=== PATIENT | female | born 1970 | race Caucasian/White ===

== ENCOUNTER 2019-05-24 11:50 | Emergency (ER) | payer BC, SELFPAY ==
[2019-05-24 11:52] VITALS: BP 122/72; PULSE 81; RESP 18; TEMP 37.1; O2SAT 99; BMI 23.5
--- NOTE | 2019-05-24 12:25 | US_ITS ---
STUDY: ABDOMINAL ULTRASOUND - RIGHT UPPER QUADRANT REASON FOR VISIT: Female, 49 years old several month history of right upper quadrant pain. TECHNIQUE: Ultrasound evaluation of the right upper quadrant was performed with real-time and static araujo-scale imaging. TECHNICAL QUALITY: Limited. Examination limited by bowel gas. COMPARISON: None. FINDINGS: Liver: The liver measures 12.7 cm. There is normal echogenicity of the liver. The bile ducts are within normal limits. There is hepatic color flow. The direction of portal flow is hepatopetal. There is no demonstrated mass lesion. Gallbladder: There is a contracted gallbladder. The gallbladder wall measures 3.4 mm. There is a positive sonographic Kincaid's sign. There is no pericholecystic fluid. Contracted stone filled gallbladder. Common Bile Duct (C.B.D.): The common bile duct measures 2.2 mm. Pancreas: Normal size of the head, body and tail of the pancreas. There is normal echogenicity of the pancreas. There is no demonstrated pancreatic mass or cyst. Right Kidney: Normal size of the right kidney. The right kidney measures 11.1 cm x 5.2cm x 5.4 cm. Normal renal cortex. The right cortex measures 1.6 cm. There is no demonstrated renal mass or cyst. There is no right hydronephrosis. US/Gallbladder IMPRESSION: Contracted stone filled gallbladder. Electronically Signed: Rashawn Partida, at 14:20 EST , Service support ,
--- NOTE | 2019-05-24 12:37 | ED.VISSUMM ---
- ER Visit Summary Date of Service: 05/24/19 Chief Complaint: Abdominal pain History of Present Illness: The patient is a 49 F presenting with abdominal pain. She states this started months ago. She states pain has been intermittent. It usually is worsened when she eats. She states today she woke up with epigastric and right upper quadrant pain. She was able to tolerate eating breakfast. She has had intermittent diarrhea. Denies constipation. She had an upper endoscopy and colonoscopy and states she was put on medication for stomach acid. She does not recall what medication she is on. She saw her primary care physician and an ultrasound was ordered of her gallbladder. This is scheduled for tomorrow. Denies other complaints. Physical Examination: Vitals are stable. Patient is afebrile. Alert no acute distress. HEENT exam is unremarkable. Neck is supple. Lungs are clear and equal bilaterally. Heart is regular rate and rhythm. Abdomen is soft right upper quadrant tenderness, no rebound or guarding Extremities are unremarkable. Skin is warm and dry. No focal neurologic deficit. Remainder of exam is unremarkable. Emergency Department Course and Treatment: Patient declined pain medication. CBC, chemistries unremarkable. Liver lipase are normal. Gallbladder ultrasound shows contracted stone filled gallbladder. On reevaluation, patient's pain has resolved. Discussed with Dr. Rhodes and she will follow-up in the office. She is advised to return to ED for any worsening complaints. Disposition: Discharge home Impression: Biliary colic This note was generated with [employer] dictation software. It may contain incorrect words, spelling, and punctuation that were not noted in review of the chart prior to signing ED Disposition - Plan for ED Patient: Instructions: BILIARY COLIC with [facility] (Confirmed) Referrals: Lenard Rhodes MD [STAFF PHYSICIAN] - Edilberto Tyson MD [Primary Care Provider] -
[2019-05-24 12:49] LABS: Absolute Lymphocyte Count 1.51 X10^3/uL (0.83-4.51); Basophil# 0.05 X10^3/uL; Basophil% 0.7 % (0-1); Eosinophil# 0.18 X10^3/uL; Eosinophils% 2.4 % (0-5); Hematocrit 35.9 % (37-47); Hemoglobin 11.1 g/dL (12.0-15.0); Lymphocyte # 1.51 X10^3/ul (4.0); Mean Corp Hgb Conc 30.9 g/dL (32-36); Mean Corpuscular Hgb 25.1 pg (27.0-32.0); Mean Corpuscular Volume 81.2 fL (81-99); Mean Platelet Vol. 10.5 fl (6.2-12.0); Monocyte# 0.81 X10^3/uL; Monocyte% 10.7 % (0-10); NRBC Flagged by Analyzer 0 % (0-5); Neutrophil # 4.95 X10^3/uL (2.7-7.7); Neutrophil % 65.7 % (47-70); Platelet Count 254 K/mm3 (150-450); RBC Distribution Width CV 16.9 % (11.6-14.6); RBC Distribution Width SD 50.1 fl (35.1-43.9); Red Blood Count 4.42 M/mm3 (4.2-5.4); White Blood Count 7.5 K/mm3 (4.4-11.0)
[2019-05-24 13:13] LABS: ALB/GLOB Ratio 0.9 RATIO (0.9-2.4); AST(SGOT) 12 U/L (15-37); Alanine Aminotransfer ALT/SGPT 18 U/L (13-56); Albumin, Serum 3.9 g/dL (3.2-5.0); Alkaline Phosphatase 86 U/L (45-117); Anion Gap 5 (5-15); BUN 12 mg/dL (7-18); BUN/Creat Ratio 17.4 RATIO (10-20); Calcium,Total 8.9 mg/dL (8.5-10.1); Chloride 109 mmol/L (98-107); Creatinine, Serum 0.69 mg/dL (0.55-1.02); EST Glomerular Filtration Rate 97 mL/min (>60); Est Glom Filt Rate - Afr Amer 117 mL/min (>60); Estimated Creatinine Clearance 96.96 ml/min; Globulin 4.3 g/dL (2.2-4.2); Glucose 88 mg/dL (74-106); Lipase 130 U/L (73-393); Potassium 3.8 mmol/L (3.5-5.1); Protein, Total 8.2 g/dL (6.4-8.2); Sodium Level 141 mmol/L (136-145)
--- NOTE | 2019-05-24 15:58 | ED.DEP ---
ED Disposition - Plan for ED Patient: Instructions: BILIARY COLIC with [facility] (Confirmed) Referrals: Edilberto Tyson MD [Primary Care Provider] - Lenard Rhodes MD [STAFF PHYSICIAN] -
[2019-05-24 16:14] VITALS: RESP 18
== END 2019-05-24 16:15 | disposition home or self-care (01) ==
LOC: ED 12:51
PROVIDERS: Emergency Provider Emergency Medicine; Family Provider Internal Medicine; PCP Internal Medicine
DX: K80.50 Calculus of bile duct without cholangitis or cholecystitis without obstruction (principal); K21.9 Gastro-esophageal reflux disease without esophagitis
CPT/HCPCS: 76705; 80053; 83690; 85025; 96372; 96374; 96375; 99283; A4216; J2405